=== PATIENT | male | born 1945 | race Caucasian/White ===

== ENCOUNTER 2018-06-15 07:19 | Day surgery (SDC) | payer OTHER ==
[2018-06-15] MEDS ORDERED: BENZOCAINE UNIT DOSE SPRAY HURRICAINE MM ONE (07:21)
[2018-06-15] MEDS ORDERED: fentaNYL 100 MCG/2 ML INJ IVP ONE (07:21)
[2018-06-15] MEDS ORDERED: NS 500 ML IV ONE (07:21)
[2018-06-15] MEDS ORDERED: MIDAZOLAM 2 MG/2 ML VIAL IVP ONE (07:21)
[2018-06-15] MEDS ORDERED: ATROPINE SULFATE 1 MG/10 ML SYR IVP ONE (07:21)
--- NOTE | 2018-06-15 07:54 | PDANEPAE ---
ANE History of Present Illness here for ZACH/CV for AF ANE Past Medical History - Cardiovascular History Hx Hypertension: Yes Hx Arrhythmias: Yes Hx Chest Pain: No Hx Coronary Artery / Peripheral Vascular Disease: No Hx CHF / Valvular Disease: No Hx Palpitations: No - Pulmonary History Hx COPD: No Hx Asthma/Reactive Airway Disease: No Hx Recent Upper Respiratory Infection: No Hx Oxygen in Use at Home: No Hx Sleep Apnea: No - Neurologic History Hx Cerebrovascular Accident: No Hx Seizures: No Hx Dementia: No - Endocrine History Hx Diabetes: No Hypothyroid: No Hyperthyroid: No ANE Review of Systems Review of systems is: negative Review of Systems: - Exercise capacity Exercise capacity: >=4 METS ANE Patient History - Allergies Allergies/Adverse Reactions: Sulfa (Sulfonamide Antibiotics) Allergy (Verified 06/15/18 07:51) - Home Medications Home medications: home medication list seen and reviewed Home Medications: Apixaban [Eliquis] 5 mg PO BID 06/15/18 [Last Taken 06/15/18 07:30] Lisinopril 5 mg PO DAILY 06/15/18 [Last Taken 06/14/18] Metoprolol Succinate 25 mg PO DAILY 06/15/18 [Last Taken 06/14/18] Propafenone HCl Sr [Rythmol Sr 225mg (*)] 225 mg PO BID 06/15/18 [Last Taken 07:30] - NPO status NPO Status: no food or drink >8 hours - Smoking Hx Smoking Status: Former smoker ANE Labs/Vital Signs - Labs Result Diagrams: 06/15/18 07:40 - Vital Signs Vital Signs: reviewed preoperatively; see RN documention for details Height: 175.26 cm Weight: 81.647 kg ANE Physical Exam - Airway Neck exam: FROM Mallampati Score: Class 1 - Pulmonary Pulmonary: no respiratory distress - Cardiovascular Cardiovascular: irregularly irregular - ASA Status ASA Status: II ANE Anesthesia Plan Anesthesia Plan: GA with mask
[2018-06-15 08:00] LABS: INR 1.1 (0.83-1.16); PROTIME(PATIENT) 14.4 SEC (12.0-15.0)
[2018-06-15] MEDS ORDERED: PROPOFOL 200 MG/20 ML VIAL ONE ×2 (08:02→08:03)
--- NOTE | 2018-06-15 08:43 | PDGENHP ---
History & Physical Chief Complaint: afib symptomatic Relevant Physical Exam: s1s2 irreg cta ao3 Cardiorespiratory Assessment: for cv. has not missed oac, no jadyn
--- NOTE | 2018-06-15 08:55 | PDCARD ---
Cardioversion Procedure Procedure: electrical cardioversion Indications: atrial fibrillation Consent: signed and in chart Anticoagulation: eliquis Procedural Details: Pads were placed in anterior-posterior position. Synchronized cardioversion attempt #1: 200J Synchronized cardioversion attempt #2: 200J Synchronized cardioversion attempt #3: 360J (first 2 dccv with no effect. 3rd dccv 360 j after anterolateral patch placement successful) Results: normal sinus rhythm Patient Problems: Problems Problem Status Onset Atrial fibrillation Acute
--- NOTE | 2018-06-17 09:14 | CPEKG ---
Test Reason : OPEN Blood Pressure : / mmHG Vent. Rate : 064 BPM Atrial Rate : 300 BPM P-R Int : 196 ms QRS Dur : 106 ms QT Int : 420 ms P-R-T Axes : 000 053 079 degrees QTc Int : 434 ms Atrial fibrillation Consider inferior infarct Confirmed by Hesham Ortiz ([id number]) on 06/17/2018 9:14:14 AM Referred By: Confirmed By:Hesham Ortiz
--- NOTE | 2018-06-17 09:16 | CPEKG ---
Test Reason : OPEN Blood Pressure : / mmHG Vent. Rate : 039 BPM Atrial Rate : 039 BPM P-R Int : 219 ms QRS Dur : 104 ms QT Int : 483 ms P-R-T Axes : 043 019 097 degrees QTc Int : 389 ms Sinus bradycardia Consider inferior infarct Sinus bradycardia has replaced atrial fibrillation noted on prior Confirmed by Hesham Ortiz ([id number]) on 06/17/2018 9:16:16 AM Referred By: Confirmed By:Hesham Ortiz
== END 2018-06-15 10:53 | disposition home or self-care (01) ==
LOC: FCATH 07:19
PROVIDERS: ATTEND Internal Medicine Cardiovascular Disease
PROC: 5A2204Z Restoration of Cardiac Rhythm, Single (ICD-10-PCS; principal; 2018-06-15)
DX: I48.91 Unspecified atrial fibrillation (principal); I10 Essential (primary) hypertension; Z87.891 Personal history of nicotine dependence
CPT/HCPCS: J0461; J2704

== ENCOUNTER → 2018-09-06 | Outpatient (CLI) | payer OTHER ==
[~2018-09-06] MED LIST: IOPAMIDOL (ISOVUE 370) 100 ML BTL IV ONE
== END ==
LOC: FIMAGING 13:51
PROVIDERS: ATTEND Internal Medicine Cardiovascular Disease
DX: I48.91 Unspecified atrial fibrillation (principal); R22.1 Localized swelling, mass and lump, neck
CPT/HCPCS: 75572; Q9967

== ENCOUNTER → 2018-09-15 | Day surgery (SDC) | payer OTHER ==
[~2018-09-15] MED LIST changes: +BUPIVACAINE 0.75% 10 ML SDV ONE; +HEPARIN 10,000 UNIT/10 ML MDV (1,000 UNIT/ML) ONE; +HEPARIN/DEXTROSE 25,000 UNIT/500 ML BAG ONE; -IOPAMIDOL (ISOVUE 370) 100 ML BTL IV ONE; +IOPAMIDOL (ISOVUE-300) 100 ML BTL ONE; +LIDOCAINE 1% 300 MG/30 ML SDV ONE; +NS 1,000 ML IV ONE
[2018-09-15 09:56] LABS: PLATELET COUNT 197 10^3/uL (150-400)
[2018-09-15 10:04] LABS: INR 1.04 (0.83-1.16); PROTIME(PATIENT) 13.8 SEC (12.0-15.0)
--- NOTE | 2018-09-15 11:10 | PDGENHP ---
History & Physical Chief Complaint: afib, symptomatic Relevant Physical Exam: s1s2 irreg, cta, ao3 Cardiorespiratory Assessment: for jadyn and cb afib ablation
--- NOTE | 2018-09-15 11:17 | PDANEPAE ---
ANE History of Present Illness A fib ablation ANE Past Medical History - Cardiovascular History Hx Hypertension: Yes Hx Arrhythmias: Yes Hx Chest Pain: No Hx Coronary Artery / Peripheral Vascular Disease: No Hx CHF / Valvular Disease: No Hx Palpitations: No - Pulmonary History Hx COPD: No Hx Asthma/Reactive Airway Disease: No Hx Recent Upper Respiratory Infection: No Hx Oxygen in Use at Home: No Hx Sleep Apnea: No - Neurologic History Hx Cerebrovascular Accident: No Hx Seizures: No Hx Dementia: No - Endocrine History Hx Diabetes: No Hypothyroid: No Hyperthyroid: No Obesity: no ANE Review of Systems Review of Systems: - Exercise capacity METS (RN): 3 METS - Systems Respiratory: Reports: no symptoms, other (Large thyroid mass compressing trachea 50%) ANE Patient History - Allergies Allergies/Adverse Reactions: Sulfa (Sulfonamide Antibiotics) Allergy (Verified 06/15/18 07:51) - Home Medications Home Medications: Apixaban [Eliquis] 5 mg PO BID 09/08/18 [Last Taken Unknown] Lisinopril [Zestril 5 mg (*)] 5 mg PO HS 09/08/18 [Last Taken Unknown] Metoprolol Succinate Xr [Toprol Xl 25 mg (*)] 12.5 mg PO HS 09/08/18 [Last Taken Unknown] Omeprazole 20 mg PO HS 09/08/18 [Last Taken Unknown] - NPO status NPO Status: no food or drink >8 hours - Anes Hx Anes Hx: no prior problems - Smoking Hx Smoking Status: Former smoker ANE Labs/Vital Signs - Labs Result Diagrams: 09/15/18 09:40 09/15/18 09:40 - Vital Signs Height: 175 cm Weight: 81.6 kg ANE Physical Exam - Airway Neck exam: decreased ROM Mallampati Score: Class 2 Mouth exam: normal dental/mouth exam - Cardiovascular Cardiovascular: no murmur, rub, or gallop, irregularly irregular - ASA Status ASA Status: III ANE Anesthesia Plan Anesthesia Plan: general endotracheal anesthesia (LMA vs et), GA w LMA
--- NOTE | 2018-09-15 14:02 | GCON ---
ENT CONSULTATION NOTE. DATE OF CONSULTATION: 09/15/2018 REFERRING PHYSICIAN: Yogesh Zamudio MD REASON FOR CONSULTATION: Concerns for tracheal compression. HISTORY: The patient is a 73-year-old man who was brought to the hospital today for an atrial fibrillation ablation procedure. This procedure was canceled after a chest CT scan, which was obtained on September 06, 2018, was reviewed by the anesthesiologist. He was concerned about narrowing and compression of the upper trachea. They asked me to evaluate the patient. The patient states that 4 years ago, his primary doctor felt a mass in his neck. He was seen by an ENT surgeon in [place] who obtained a biopsy which was "benign" according to the patient. The patient went to the [facility] for a 2nd opinion and was told not to worry about it. The patient states that the mass continued to grow over time, but that he had no shortness of breath, dysphagia, or odynophagia. He denied any weight loss. He exercises with some frequency. 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 PAST MEDICAL HISTORY: 1. Atrial fibrillation diagnosed September 2017. 2. 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 3. Hypertension. PAST SURGERIES: Left shoulder arthroscopy, left knee arthroscopy. ALLERGIES: Sulfa. MEDICATIONS: Eliquis, lisinopril and metoprolol. PHYSICAL EXAM: The patient was awake, alert, and oriented, speaking in clear sentences, had just finished eating a regular lunch. Ear exam showed normal external ears, ear canals, and tympanic membranes bilaterally. Nasal exam anteriorly was clear. He does have some mid septal deviation to the left. Oral cavity exam showed no trismus. Tonsils have been removed. The palate, tongue and the floor of the mouth are all normal. Neck exam is notable for bilateral enlargement of the thyroid gland, which is quite firm. It is nontender on palpation. It feels like it is about a 4 x 4 cm in each lobe. Fiberoptic endoscopy was then performed, passing the scope through the right side of the nose. Nasal passages were clear except for the leftward septal deviation at the midportion of the nose. Nasopharyngeal exam is normal. Hypopharynx and larynx exam shows a normal base of tongue and vallecula. Piriform sinuses are clear of any pooling of secretions. Laryngeal exam shows the right vocal cord to appear normal and move well. The left cord seemed to have some diminished mobility on inspiration. Below the glottis, there is a pale mass visible extending approximately 75% back through the visible portion of the trachea. It looks like it is probably a lesion spreading intrinsically into the trachea, and not just externally compressing it. 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 I am concerned that this could represent a malignant transformation of a benign tumor. It was certainly a good move that they did not try and intubate him today. I think he is going to need a thyroidectomy and a segmental tracheal resection with reconstruction. This is not something that I am adapt to doing. However, I know a surgeon down in [place] who is in a group of surgeons who are excellent doing these operations, and they work in conjunction with cardiothoracic surgeons. I contacted Dr. Hesham Gutierrez, and he agreed to see Mr. Phelps in consultation. I will be available should he have any acute airway issues. Thank you very much for this consultation. /[id number]/MODL MTDD
--- NOTE | 2018-09-15 14:59 | POSTANESTH ---
Post Anesthetic Evaluation Cardiovascular Status: Other, See Comment Respiratory Status: Other, See Comment Level of Consciousness/Mental Status: Other, See Comment Pain Control: Inadeq, Add Tx Required Nausea/Vomiting Control: Inadeq, Add Tx Reqired Complications Possibly Related to Anesthesia: Other, See Comments (Case not done. Cancelled)
--- NOTE | 2018-09-15 17:06 | CPEKG ---
Test Reason : OPEN Blood Pressure : / mmHG Vent. Rate : 070 BPM Atrial Rate : 000 BPM P-R Int : 179 ms QRS Dur : 098 ms QT Int : 424 ms P-R-T Axes : 000 044 037 degrees QTc Int : 458 ms Atrial fibrillation Compared with 06/15/2018 AF is new Confirmed by Daphne Diehl ([id number]) on 09/15/2018 5:05:53 PM Referred By: Yogesh Zamudio Confirmed By:Daphne Diehl
== END | disposition home or self-care (01) ==
LOC: FCATH 09:12
PROVIDERS: ATTEND Internal Medicine Cardiovascular Disease
PROC: 0CJS8ZZ Inspection of Larynx, Via Natural or Artificial Opening Endoscopic (ICD-10-PCS; principal; 2018-09-15)
DX: I48.1 Persistent atrial fibrillation (principal); E04.1 Nontoxic single thyroid nodule; J39.8 Other specified diseases of upper respiratory tract; I10 Essential (primary) hypertension; M10.9 Gout, unspecified; Z79.01 Long term (current) use of anticoagulants; Z88.2 Allergy status to sulfonamides; Z53.09 Procedure and treatment not carried out because of other contraindication
CPT/HCPCS: J1644; Q9967